=== PATIENT | male | born 1980 | race African-American/Black ===

== ENCOUNTER → 2022-01-04 | Outpatient (CLI) | payer OTHER | LOC: CARD 10:00 | PROVIDERS: ATTEND Internal Medicine Cardiovascular Disease | DX: I48.0 Paroxysmal atrial fibrillation (principal); I51.7 Cardiomegaly; I86.8 Varicose veins of other specified sites | CPT/HCPCS: 93306 ==

== ENCOUNTER → 2022-12-21 | Outpatient (CLI) | payer OTHER ==
--- NOTE | 2022-12-21 18:53 | Diagnostic Imaging Report ---
INDICATION: Knee pain. Three view right knee performed. No fracture, dislocation or acute bony abnormality. No loose body or joint effusion. There is mild medial greater than lateral tibiofemoral compartmental degenerative joint space narrowing. IMPRESSION: Unremarkable 3 view right knee. Dictated by: Dictated on workstation # [id number]
== END ==
LOC: RAD FS 13:14
PROVIDERS: ATTEND Nurse Practitioner
DX: M25.561 Pain in right knee (principal)
CPT/HCPCS: 73562